=== PATIENT | male | born 1930 | race Caucasian/White ===

== ENCOUNTER 2016-12-27 22:00 | Emergency (ER) | payer MEDICARE ==
[~2016-12-27] VITALS: Ht 172.7 cm; Wt 90.9 kg
[~2016-12-27 22:00] MED LIST: CA CHLORIDE 10% 10 ML SYRINGE ONE; EPINEPHrine 0.1 MG/ML SYG ONE; NA BICARBONATE 8.4% 50 ML SYG ONE
[2016-12-27 22:21] VITALS: Ht 172.7 cm; Wt 90.9 kg
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
== END 2016-12-28 00:34 | disposition expired ==
LOC: E/R 22:00 → EDBD 22:00 → E/R 12-28 00:34
DX: I46.9 Cardiac arrest, cause unspecified (principal); S49.91XA Unspecified injury of right shoulder and upper arm, initial encounter; V09.29XA Pedestrian injured in traffic accident involving other motor vehicles, initial encounter
CPT/HCPCS: 32551; 92950; 99285; J0171